=== PATIENT | female | born 1995 | race Caucasian/White ===

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

== ENCOUNTER 2017-05-17 14:24 | Emergency (ER) | payer OTHER ==
[2017-05-17] MEDS ORDERED: Ketorolac INJ* 60 MG/2 ML VIAL IM ONE (15:55)
--- NOTE | 2017-05-17 16:02 | UC ---
Headache HPI - HPI Summary HPI Summary: Headache for many years, bitemporal, stabbing and pulsatile, with occasional photophobia, occasional balance loss. Has never had neuro evaluation and no past imaging. Has been on meds in the past, none of which she can name. Does not use nsaid's chronically, last ibu was 4 days ago and did not give relief. States had an LP in the past without having a CT prior to this--no recall of any imaging in the past. Leaves work frequently due to headache. Chronically poor sleep, recent increase in insomnia and has had 30 pound weight loss because she has been working so much that she is eating less. No tremor. - History Of Current Complaint Chief Complaint: MARYeadamiguelangel Stated Complaint: HEADACHE Time Seen by Provider: 05/17/17 15:29 Hx Obtained From: Patient Hx Last Menstrual Period: "two weeks ago" ?: No Onset/Duration: Gradual Onset, Lasting Weeks - actually years Onset Of Symptoms: Worse Since(Note Comment) - worse the past 4 weeks. Initially Headache Was: Initial Pain Scale(0-10)= - 9 Pain Intensity: 7 Pain Scale Used: 0-10 Numeric Timing: Constant Character: Sharp - sharp and stabbing, but with a pulsatile quality, Throbbing Location of Headache: Temporal - bitemporal Aggravating Factor(s): Exertion - gets worse with prolonged work day Allevating Factor(s): Rest Associated Signs And Symptoms: Positive: Dizziness - on occasion. Negative: Vomiting, Fever, Neck Pain, Neck Stiffness - Risk Factors Meningitis Risk Factors: Negative SDH Risk Factors: Negative Temporal Arteritis Risk Factors: Negative - Allergies/Home Medications Allergies/Adverse Reactions: Allergies Allergy/AdvReac Type Severity Reaction Status Date / Time animals Allergy Sneezing Uncoded 05/17/17 14:39 Home Medications: Home Medications diPHENhydraMINE PO* [Benadryl PO 25 MG TAB*] 50 mg PO BEDTIME 05/17/17 [History Confirmed 05/17/17] PMH/Surg Hx/FS Hx/Imm Hx - Additional Past Medical History Additional PMH: chronic scalp dermatitis Previously Healthy: No - Surgical History Surgical History: Yes - tonsillectomy - Family History Known Family History: Positive: Other - mother has had cancer, uncertain primary - Social History Occupation: Employed Full-time - works at [employer]. Alcohol Use: None Substance Use Type: None Smoking Status (MU): Never Smoked Tobacco - Immunization History Most Recent Influenza Vaccination: Not the 2016/2017 Season Most Recent Tetanus Shot: UNKNOWN Vaccination Up to Date: Yes Review of Systems Constitutional: Fatigue Skin: Other - chronic scalp dermatitis treated by Dr. Giordano with a ? steroid solution Eyes: Other - occasional mild photophobia. ENT: Negative Respiratory: Negative Cardiovascular: Negative Gastrointestinal: Other - weight loss with eating less due to overwork. Genitourinary: Negative Motor: Negative Neurovascular: Negative Musculoskeletal: Negative Neurological: Negative Psychological: Negative Is Patient Immunocompromised?: No All Other Systems Reviewed And Are Negative: Yes Physical Exam Triage Information Reviewed: Yes Appearance: Well-Appearing, Pain Distress - mild to moderate. Vital Signs: Initial Vital Signs Temp 98.6 F 05/17/17 14:37 Pulse 64 05/17/17 14:37 Resp 16 05/17/17 14:37 BP 134/89 05/17/17 14:37 Pulse Ox 100 05/17/17 14:37 Vital Signs Reviewed: Yes Eyes: Positive: Conjunctiva Clear, Other: - No photophobia, EOM normal, no proptosis ENT: Positive: Pharynx normal Neck: Positive: Supple, Nontender, Enlarged Nodes @ - posterior cervical nodes bilaterally, varying size, compressible and mobile., Other: - enlarged thyroid - -both lobes, soft without distinct nodules. Respiratory: Positive: Lungs clear, Normal breath sounds Cardiovascular: Positive: RRR, No Murmur Abdomen Description: Positive: Nontender, No Organomegaly Musculoskeletal Exam: Normal Musculoskeletal: Positive: Strength Intact, No Edema Neurological: Positive: Alert, Muscle Tone Normal Psychological Exam: Normal Skin Exam: Other - sweaty palms. Skin: Positive: Other - very mild scalp erythema, no evidence of infection. Re-Evaluation - Re-Evaluation First Eval Re-Evaluation Time: 17:00 Change: Improved - pain decreased from 7 to 5 post use of toradol. Headache Course/Dx - Course Course Of Treatment: use of toradol with some relief. Labs done for evaluation of enlarged thyroid, sweating and weight loss. referral to neurology. - Differential Dx/Diagnosis Differential Diagnosis/HQI/PQRI: Meningitis, Migraine, Tension Headache, Other - chronic daily headache. Provider Diagnoses: chronic daily headache, etiology unclear. sleep deprivation. lymphadenopathy (cervical). thyroid enlargement, diffuse. Discharge - Discharge Plan Condition: Stable Disposition: HOME Patient Education Materials: General Headache (ED), Thyroid Goiter (ED), Lymphadenopathy (ED) Referrals: No Primary Care Phys,NOPCP [Primary Care Provider] - Jose Tijerina MD [Medical Doctor] - Additional Instructions: The cause of your chronic headaches is not clear; please call neurology to arrange a referral. You are sleep deprived, and I advocate several days of rest. The enlargement of your thyroid needs further work up even if the function is normal. The results of the blood testing will be available tomorrow afternoon. You can call to review results; generally only abnormal results are called, but I suggest that you call in. There are also enlarged lymph nodes which should be re-assessed.
--- NOTE | 2017-05-17 17:05 | RAD ---
Indication: One month of headaches with increasing severity. CT of the brain was performed without IV contrast. Ventricular structures are midline. No midline shift is noted. The extra-axial spaces are unremarkable. The study is limited as jewelry in the ear lobe causes a large amount of streak artifact. No focal masses are noted. No obvious hemorrhage is noted however study is limited as described above. Bony calvaria, mastoid air cells and paranasal sinuses are unremarkable. IMPRESSION: Large amount of artifact from jewelry in the ear lobe on the right. No obvious masses noted.
[2017-05-17 17:11] VITALS: BP 122/86
[2017-05-17 20:30] LABS: Hematocrit 44 % (35-47); Hemoglobin 15.2 g/dl (12.0-16.0); Mean Corpuscular HGB Conc 34 g/dl (31-36); Mean Corpuscular Hemoglobin 30 pg (27-31); Mean Corpuscular Volume 87 fL (80-97); Mean Platelet Volume 8 um3 (7.4-10.4); Red Blood Count 5.13 10^6/ul (4.0-5.4); Red Cell Distribution Width 12 % (10.5-15); White Blood Count 8.5 10^3/ul (3.5-10.8)
[2017-05-17 20:47] LABS: BUN/Creatinine Ratio 11.4 (8-20); C Reactive Protein 1.09 mg/L (< 5.00); Calcium 10.3 mg/dL (8.6-10.3); EGFR African American 120.6 (>60); EGFR Non-African American 93.8 (>60); Globulin 2.4 g/dL (2-4); Potassium 3.8 mmol/L (3.5-5.0); Total Bilirubin 0.5 mg/dL (0.2-1.0); Total Protein 7.4 g/dL (6.4-8.9)
[2017-05-17 21:33] LABS: TSH (Thyroid Stimulating Horm) 2.54 mcIU/mL (0.34-5.60)
== END 2017-05-17 17:26 | disposition home or self-care (01) ==
LOC: UCCORT 14:24
DX: G44.52 New daily persistent headache (NDPH) (principal); Z72.820 Sleep deprivation; R59.0 Localized enlarged lymph nodes; E04.9 Nontoxic goiter, unspecified
CPT/HCPCS: 36415; 70450; 80053; 84443; 85025; 86140; 96372; 99212; G0463; J1885

== ENCOUNTER 2017-09-15 18:28 | Emergency (ER) | payer OTHER ==
[2017-09-15 18:51] VITALS: BP 135/72
[2017-09-15] MEDS ORDERED: Fluorescein Sod TOPICAL 0.6* 0.6 MG TEST OPHTHALMIC ONE ×2 (19:12→19:13)
[2017-09-15] MEDS ORDERED: Polymyx/Trimethoprim OPTH* 10 ML BTL LEFT EYE ONE (19:19)
--- NOTE | 2017-09-15 19:19 | UC ---
Eye Complaint HPI - HPI Summary HPI Summary: 22 yo female with left eye redness/iriitation since this AM eye matted shut - History of Current Complaint Chief Complaint: UCEye Stated Complaint: POSS PINK EYE Time Seen by Provider: 09/15/17 18:59 Hx Obtained From: Patient Hx Last Menstrual Period: 09/01/17 Onset/Duration: Gradual Onset, Lasting Hours Timing: Constant Severity Initially: Mild Severity Currently: Mild Pain Intensity: 2 Pain Scale Used: 0-10 Numeric Aggravating Factor(s): Nothing Associated Signs And Symptoms: Positive: Drainage (Purulent) - Risk Factors Penetrating Injury Risk Factor: Negative Globe Rupture Risk Factors: Negative Acute Glaucoma Risk Factors: Negative Optic Artery Occlusion Risk Factors: Negative - Allergies/Home Medications Allergies/Adverse Reactions: Allergies Allergy/AdvReac Type Severity Reaction Status Date / Time animals Allergy Sneezing Uncoded 09/15/17 18:51 PMH/Surg Hx/FS Hx/Imm Hx Previously Healthy: Yes - Surgical History Surgical History: Yes - Family History Known Family History: Positive: Cardiac Disease, Diabetes, Other - mother has had cancer, uncertain primary - Social History Alcohol Use: None Substance Use Type: None Smoking Status (MU): Never Smoked Tobacco - Immunization History Most Recent Influenza Vaccination: Not the 2016/2017 Season Most Recent Tetanus Shot: UNKNOWN Vaccination Up to Date: Yes Review of Systems Constitutional: Negative Skin: Negative Eyes: Drainage, Eye Redness ENT: Negative Respiratory: Negative Cardiovascular: Negative Gastrointestinal: Negative Genitourinary: Negative Motor: Negative Neurovascular: Negative Musculoskeletal: Negative Neurological: Negative Psychological: Negative Is Patient Immunocompromised?: No All Other Systems Reviewed And Are Negative: Yes Physical Exam Triage Information Reviewed: Yes Appearance: Well-Appearing, No Pain Distress, Well-Nourished Vital Signs: Initial Vital Signs Temp 98.5 F 09/15/17 18:48 Pulse 56 09/15/17 18:48 Resp 16 09/15/17 18:48 BP 135/72 09/15/17 18:48 Pulse Ox 100 09/15/17 18:48 Vital Signs Reviewed: Yes Eyes: Positive: Conjunctiva Inflamed, Discharge, Other: - flourescein staining was (-) ENT: Positive: Hearing grossly normal. Negative: Nasal congestion, Nasal drainage, Trismus, Muffled voice, Hoarse voice Neck: Positive: Supple, Nontender, No Lymphadenopathy Respiratory: Positive: Lungs clear, Normal breath sounds, No respiratory distress, No accessory muscle use Cardiovascular: Positive: RRR, No Murmur Musculoskeletal: Positive: ROM Intact, No Edema Neurological: Positive: Alert Psychological Exam: Normal Skin Exam: Normal Eye Complaint Course/Dx - Differential Dx/Diagnosis Provider Diagnoses: conjunctivitis (left) Discharge - Sign-Out/Discharge Documenting (check all that apply): Discharge - Discharge Plan Condition: Stable Disposition: HOME Patient Education Materials: Conjunctivitis (ED) Referrals: No Primary Care Phys,NOPCP [Primary Care Provider] - Additional Instructions: use drops as directed recheck for new or worsening symptoms I suggest you also use ZADITOR eye drops (OTC) recheck in 2 days if not better - Billing Disposition and Condition Condition: STABLE Disposition: HOME
== END 2017-09-15 19:34 | disposition home or self-care (01) ==
LOC: UCCORT 18:28
DX: H10.9 Unspecified conjunctivitis (principal)
CPT/HCPCS: 99212; G0463

== ENCOUNTER 2018-02-15 12:36 | Emergency (ER) | payer OTHER ==
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
[2018-02-15 13:18] VITALS: BP 138/79
--- NOTE | 2018-02-15 13:52 | ED ---
Head Injury - HPI Summary HPI Summary: 22 yr old female with the complaint of head injury. Onset of injury 10 am when she tripped over something at work, fell back and hit her head. No LOC. She felt dizzy initially, but now fine. No change in vision, speech, hearing, swallowing, focal weakness or numbness. No change in gait. No vomiting. No neck pain or other pain or injuries. - History Of Current Complaint Chief Complaint: UCHeadInjury Stated Complaint: HEAD INJURY S/P FALL - W/C Time Seen by Provider: 02/15/18 13:36 Hx Last Menstrual Period: 3 weeks ago Pain Intensity: 5 - Allergies/Home Medications Allergies/Adverse Reactions: Allergies Allergy/AdvReac Type Severity Reaction Status Date / Time animals Allergy Sneezing Uncoded 02/15/18 13:13 Home Medications: Home Medications Etonogestrel [Nexplanon] 68 mg IMPLANT ONCE 02/15/18 [History Confirmed 02/15/18 ] PMH/Surg Hx/FS Hx/Imm Hx Infectious Disease History: No Infectious Disease History: Denies: Traveled Outside the [place] in Last 30 Days - Family History Known Family History: Positive: Cardiac Disease, Diabetes, Other - mother has had cancer, uncertain primary - Social History Occupation: Employed Full-time Alcohol Use: None Substance Use Type: Reports: None Smoking Status (MU): Never Smoked Tobacco Review of Systems Positive: Headache All Other Systems Reviewed And Are Negative: Yes Physical Exam Triage Information Reviewed: Yes Vital Signs On Initial Exam: Initial Vitals Temp Pulse Resp BP Pulse Ox 98.5 F 75 14 138/79 100 02/15/18 13:14 02/15/18 13:14 02/15/18 13:14 02/15/18 13:14 02/15/18 13:14 Vital Signs Reviewed: Yes Appearance: Positive: Well-Appearing, No Pain Distress Skin: Positive: Warm, Skin Color Reflects Adequate Perfusion Head/Face: Positive: Normal Head/Face Inspection Eyes: Positive: EOMI ENT: Positive: Normal ENT inspection, Pharynx normal, TMs normal Neck: Positive: Supple, Nontender Respiratory/Lung Sounds: Positive: Clear to Auscultation, Breath Sounds Present Cardiovascular: Positive: RRR. Negative: Murmur Abdomen Description: Positive: Nontender Musculoskeletal: Positive: Strength/ROM Intact Neurological: Positive: Sensory/Motor Intact, Alert, Oriented to Person Place, Time, CN Intact II-III, Normal Gait, Speech Normal. Negative: Receptive Aphasia , Expressive Aphasia, Disoriented, Slurred Speech Psychiatric: Positive: Normal - [place] Coma Scale Best Eye Response: 4 - Spontaneous Best Motor Response: 6 - Obeys Commands Best Verbal Response: 5 - Oriented Coma Scale Total: 15 Diagnostics - Vital Signs Vital Signs Temp Pulse Resp BP Pulse Ox 02/15/18 13:14 98.5 F 75 14 138/79 100 - Laboratory Lab Statement: Any lab studies that have been ordered have been reviewed, and results considered in the medical decision making process. Head Injury Course/Dx Course Of Treatment: 22 yr old with closed head injury. Plan DC home good condition. - Diagnoses Provider Diagnoses: Closed head injury Discharge - Sign-Out/Discharge Documenting (check all that apply): Patient Departure All imaging exams completed and their final reports reviewed: No Studies - Discharge Plan Condition: Good Disposition: HOME Patient Education Materials: Head Injury (ED), Hypertension (ED) Referrals: Vilma Cerda PA [Primary Care Provider] - - Billing Disposition and Condition Condition: GOOD Disposition: Home
== END 2018-02-15 13:51 | disposition home or self-care (01) ==
LOC: UCCORT 12:36
DX: S09.90XA Unspecified injury of head, initial encounter (principal); W18.09XA Striking against other object with subsequent fall, initial encounter; Y92.9 Unspecified place or not applicable
CPT/HCPCS: 99211; G0463